=== PATIENT | male | born 1985 | race Two or more races ===

== ENCOUNTER 2017-05-27 22:26 | Emergency (ER) | payer MEDICAID ==
[~2017-05-27] VITALS: Ht 162.6 cm; Wt 78.0 kg
[2017-05-28] MEDS ORDERED: DIAZEPAM 5 MG TABLET PO ONE (01:00)
[2017-05-28] MEDS ORDERED: KETOROLAC 30 MG/1 ML ONE (01:00)
[2017-05-28] MEDS ORDERED: HYDROmorphone 1 MG/ML, 1ML IM ONE (01:00)
[2017-05-28] MEDS ORDERED: DIAZEPAM 5 MG TABLET ONE (01:00)
[2017-05-28] MEDS ORDERED: HYDROmorphone 1 MG/ML, 1ML ONE (01:00)
[2017-05-28] MEDS ORDERED: KETOROLAC 30 MG/1 ML IM ONE (01:00)
[2017-05-28 01:20] LABS: DAU SCREEN DISCLAIMER
[2017-05-28 02:42] VITALS: BP 104/66
== END 2017-05-28 02:42 | disposition home or self-care (01) ==
LOC: ED 05-28 02:36
DX: S29.012A Strain of muscle and tendon of back wall of thorax, initial encounter (principal); F15.10 Other stimulant abuse, uncomplicated; F12.10 Cannabis abuse, uncomplicated; X58.XXXA Exposure to other specified factors, initial encounter; Y93.89 Activity, other specified; Y92.89 Other specified places as the place of occurrence of the external cause; Y99.9 Unspecified external cause status
CPT/HCPCS: 80307; 81003; 96372; 99284; J1170; J1885; G0479